=== PATIENT | female | born 1950 | race African-American/Black ===

== ENCOUNTER 2020-03-01 20:25 | Inpatient (IN) ==
--- NOTE | 2020-03-01 21:25 | Diag Imaging Result Doc PS360 ---
CHEST-1 VIEW - 03/01/2020 INDICATION: SOB COMPARISON: None FINDINGS: The lungs are normally expanded and clear. Heart size and mediastinal contours are normal. No pneumothorax or pleural effusion. There is colon under the right hemidiaphragm, a normal variant. IMPRESSION: Negative exam. Electronically signed by Osvaldo Garces 03/01/2020 9:23 PM
[2020-03-01 21:33] LABS: BASO# 0.15 X1000 (0.0-0.2); BASO% 3.2 % (0.0-0.8); EOS# 0.05 X1000 (0.0-0.7); EOS% 1.1 % (0.0-10.0); HEMATOCRIT 36.6 % (37.0-47.0); HEMOGLOBIN 11.9 g/dL (12.0-16.0); IMM GRAN# 0.05 X1000 (0.0-0.04); IMM GRAN% 1.1 % (0.0-0.5); LYMPH% 46.7 % (20.5-51.1); MCH 31.2 PG (27-31); MCHC 32.5 g/dL (33-37); MCV 95.8 FL (81-99); MONO# 0.59 X1000 (0.11-0.59); MONO% 12.5 % (1.7-9.3); MPV 10.1 FL (7.4-10.4); NEUT# 1.67 X1000 (1.4-6.5); NEUT% 35.4 % (42.2-75.2); PLT 292 X1000 (130-400); RBC 3.82 XMIL (4.2-5.4); RDW 11.5 % (11.5-14.5); WBC 4.71 X1000 (4.8-10.8)
[2020-03-01 21:59] LABS: ALB/GLOB RATIO 1.3; ALBUMIN 3.7 g/dL (3.5-5.0); CALCIUM 8.9 mg/dL (8.8-10.2); CREATININE 1.5 mg/dL (0.5-0.9); POTASSIUM 4.6 mmol/L (3.5-5.1); TOTAL BILIRUBIN 0.41 mg/dL (0.20-1.00); TOTAL PROTEIN 6.6 g/dL (6.3-8.3)
--- NOTE | 2020-03-02 00:19 | PROVIDER DOCUMENTATION ---
This chart was entered by Jessica Sheikh Scribe, acting as scribe for Kristine Casey MD. HPI-Respiratory General - General Stated Complaint: covid + low sat Time Seen by Provider: 03/01/20 20:28 Source: patient, EMS, other ([facility] employee) Allergies/Adverse Reactions: Patient Allergies Allergy/AdvReac Type Severity Reaction Status Date / Time No Known Allergies Allergy Verified 03/01/20 20:30 Home Medications: Home Medication List Medication Instructions Recorded Confirmed Last Taken Type Acetaminophen 650 mg PO DIRECTED 03/01/20 03/01/20 03/01/20 History Allopurinol 100 mg PO DAILY 03/01/20 03/01/20 03/01/20 History Benztropine [Cogentin] 0.5 mg PO BID 03/01/20 03/01/20 03/01/20 History Calcium Polycarbophil [Fiber-Lax] 625 mg PO DIRECTED 03/01/20 03/01/20 02/29/20 History Carvedilol 6.25 mg PO BID 03/01/20 03/01/20 03/01/20 History Cetirizine [Zyrtec] 10 mg PO DAILY 03/01/20 03/01/20 03/01/20 History Docusate Sodium [Colace] 100 mg PO BID PRN 03/01/20 03/01/20 Unknown History Hydrochlorothiazide 12.5 mg PO DAILY 03/01/20 03/01/20 03/01/20 History Linaclotide [Linzess] 145 mcg PO DAILY 03/01/20 03/01/20 03/01/20 History Lisinopril 2.5 mg PO DAILY 03/01/20 03/01/20 03/01/20 History Loperamide HCl [Imodium A-D] 2 mg PO DIRECTED 03/01/20 03/01/20 02/29/20 History Lorazepam [Ativan] 1 mg PO TID 03/01/20 03/01/20 03/01/20 History Loxapine [Loxitane] 25 mg PO BID 03/01/20 03/01/20 03/01/20 History Loxapine [Loxitane] 50 mg PO QHS 03/01/20 03/01/20 02/29/20 History Multivitamin,Therapeutic 1 ea PO DAILY 03/01/20 03/01/20 03/01/20 History [Thera-Tabs] Neomycin/Bacitracin/Polymyxinb 1 ea TOPICAL DIRECTED 03/01/20 03/01/20 Unknown History [Triple Antibiotic Ointment] Olanzapine [Zyprexa] 15 mg PO TID 03/01/20 03/01/20 03/01/20 History Polyethylene Glycol 3350 [Miralax] 17 gm PO DIRECTED 03/01/20 03/01/20 Unknown History Sennosides/Docusate Sodium 1 tab PO DAILY 03/01/20 03/01/20 03/01/20 History [Senexon-S 50-8.6 mg Tablet] - History of Present Illness-Resp Nature of Presenting Problem: 70 y/o female with mental handicap presents to the ED with low O2 sat and positive Covid 19. retirement staff called and stated the patient was transferred to them from a [facility] facility and tested for Covid on Wednesday with positive results called to them yesterday. They stated she had been doing well with only a slight cough and O2 sat 98-99 percent until today when O2 sat dropped to 79 percent. The patient denies all symptoms and pain. Onset/Duration: reports: unsure Timing: reports: still present Context: reports: other (Covid-19 positive) Cough Quality/Degree: reports: mild Episode Frequency: no prior episodes Current Respiratory Medication Therapy: Initiated see nurses note Similar Symptoms Previously?: No Recently seen or treated by another doctor?: No Review of Systems - Adult - REVIEW OF SYSTEMS - ADULT ROS:: limited per condition (The patient is mentally handicapped) Constitutional: denies: chills, fever, weight loss Eyes: reports: no symptoms reported Ears, Nose, Mouth & Throat: reports: no symptoms reported Cardiovascular: denies: chest pain, palpitations, syncope Respiratory: reports: cough. denies: hemoptysis, shortness of breath Gastrointestinal: reports: no symptoms reported Genitourinary: reports: no symptoms reported Musculoskeletal: reports: no symptoms reported Integumentary: reports: no symptoms reported Neurological: reports: no symptoms reported Psychiatric: reports: no symptoms reported Endocrine: reports: no symptoms reported Hematologic/Lymphatic: reports: no symptoms reported Allergic/Immunologic: reports: no symptoms reported All Other Systems: Reviewed and Negative Past History - Adult - PAST MEDICAL HISTORY-ADULT Review of Records: reports: Nursing Assessment Review, Medications Reviewed - IMMUNIZATION STATUS Childhood Immunizations: See Nurse Assessment Flu Vaccine: See Nurse Assessment - SOCIAL HISTORY Living Situation: group Physical Exam-General - PHYSICAL EXAM-ADULT Initial Vital Signs Reviewed: Yes - CONSTITUTIONAL General Appearance: alert, no apparent distress, obese, other (97% on room air) - EYES Eyes: PERRL/EOMI - HEAD, EARS, NOSE, MOUTH & THROAT HENMT: normocephalic/atraumatic, moist mucous membranes - NECK Neck: full range of motion, supple - RESPIRATORY Respiratory: decreased breath sounds. negative: rales, rhonchi, wheezing - CARDIOVASCULAR Cardiovascular: regular rate, rhythm - GASTROINTESTINAL (ABDOMEN) Abdominal Exam: non tender, soft. negative: distended, guarding, rebound - SKIN Integumentary: normal color, warm/dry - NEUROLOGIC Neurologic: grossly normal Progress - PLAN OF CARE/RESULTS Progress/Plan/Lab Results: Vital Signs - 8 hr 03/01/20 21:12 03/01/20 22:59 Temperature 98.6 F Pulse Rate 87 69 Respiratory Rate 19 21 Blood Pressure 117/88 102/67 O2 Sat by Pulse Oximetry 96 98 03/01/20 23:00 Respiratory Syncytial Virus Ag Scrn - Final Nasopharyngeal 03/01/20 23:00 Influenza Screen - Final Nasopharyngeal Laboratory Results - last 24 hr 03/01/20 03/01/20 03/01/20 20:55 20:55 20:55 WBC RBC Hgb Hct MCV MCH MCHC RDW Std Deviation Plt Count MPV Immature Gran % (Auto) Neut % (Auto) Lymph % (Auto) Knott % (Auto) Eos % (Auto) Baso % (Auto) Immature Gran # (Auto) Neut # (Auto) Lymph # (Auto) Knott # (Auto) Eos # (Auto) Baso # (Auto) Segmented Neutrophils D-Dimer, Quantitative 1.04 H Sodium Potassium Chloride Carbon Dioxide Anion Gap BUN Creatinine Estimated GFR/1.73 m2 BUN/Creatinine Ratio Glucose Calculated Osmolality Calcium Ferritin 1513 H Total Bilirubin AST ALT Alkaline Phosphatase Lactate Dehydrogenase Troponin T High Sens C-React Prot High Sens 7.960 Bqb-N-Cfvbznzfofl Pept Total Protein Albumin Globulin Albumin/Globulin Ratio 03/01/20 03/01/20 03/01/20 20:55 20:55 20:55 WBC RBC Hgb Hct MCV MCH MCHC RDW Std Deviation Plt Count MPV Immature Gran % (Auto) Neut % (Auto) Lymph % (Auto) Knott % (Auto) Eos % (Auto) Baso % (Auto) Immature Gran # (Auto) Neut # (Auto) Lymph # (Auto) Knott # (Auto) Eos # (Auto) Baso # (Auto) Segmented Neutrophils D-Dimer, Quantitative Sodium 145 Potassium 4.6 Chloride 107 Carbon Dioxide 25 Anion Gap 13 BUN 29 H Creatinine 1.5 H Estimated GFR/1.73 m2 34 BUN/Creatinine Ratio 19 Glucose 98 Calculated Osmolality 295 Calcium 8.9 Ferritin Total Bilirubin 0.41 AST 45 H ALT 44 H Alkaline Phosphatase 97 Lactate Dehydrogenase 263 H Troponin T High Sens 16 C-React Prot High Sens Zor-B-Lnxbglzahja Pept 86 Total Protein 6.6 Albumin 3.7 Globulin 2.9 Albumin/Globulin Ratio 1.3 03/01/20 20:55 WBC 4.71 L RBC 3.82 L Hgb 11.9 L Hct 36.6 L MCV 95.8 MCH 31.2 H MCHC 32.5 L RDW Std Deviation 11.5 Plt Count 292 MPV 10.1 Immature Gran % (Auto) 1.1 H Neut % (Auto) 35.4 L Lymph % (Auto) 46.7 Knott % (Auto) 12.5 H Eos % (Auto) 1.1 Baso % (Auto) 3.2 H Immature Gran # (Auto) 0.05 H Neut # (Auto) 1.67 Lymph # (Auto) 2.20 Knott # (Auto) 0.59 Eos # (Auto) 0.05 Baso # (Auto) 0.15 Segmented Neutrophils Not Reportable D-Dimer, Quantitative Sodium Potassium Chloride Carbon Dioxide Anion Gap BUN Creatinine Estimated GFR/1.73 m2 BUN/Creatinine Ratio Glucose Calculated Osmolality Calcium Ferritin Total Bilirubin AST ALT Alkaline Phosphatase Lactate Dehydrogenase Troponin T High Sens C-React Prot High Sens Vdp-C-Oohprcdzhmn Pept Total Protein Albumin Globulin Albumin/Globulin Ratio Orders Category Date Time Status CHEST-1 VIEW [RAD] Stat Exams 03/01/20 20:00 Completed CBC WITH ELECTRONIC DIFF [HEME] Stat Lab 03/01/20 20:55 Completed COMPREHENSIVE METABOLIC PANEL [CHEM] Stat Lab 03/01/20 20:55 Completed CRP HIGH SENSITIVITY Stat Lab 03/01/20 20:55 Completed D-DIMER [COAG] Stat Lab 03/01/20 20:55 Completed FERRITIN Stat Lab 03/01/20 20:55 Completed INFLUENZA SCREEN A/B Stat Lab 03/01/20 23:00 Completed LDH [CHEM] Stat Lab 03/01/20 20:55 Completed PRO B-NATRIURETIC PEPTIDE Stat Lab 03/01/20 20:55 Completed RSV [RESPIRATORY SYNCYTIAL VIRUS] Stat Lab 03/01/20 23:00 Completed TROPONIN T HIGH SENSITIVITY Stat Lab 03/01/20 20:55 Completed Result Diagrams: 03/01/20 20:55 03/01/20 20:55 - XRAY 1 XRAY Study: Chest Impression: Normal (CHEST-1 VIEW - 03/01/2020 INDICATION: SOB COMPARISON: None FINDINGS: The lungs are normally expanded and clear. Heart size and mediastinal contours are normal. No pneumothorax or pleural effusion. There is colon under the right hemidiaphragm, a normal variant. IMPRESSION: Negative exam. Electronically signed by Osvaldo Garces 03/01/2020 9:23 PM) - CONSULTS/PCP/HOSPITALIST Notification #1 *Consult/PCP/Hospitalist*: Dr. Medellin paged at [phone] Time Discussed: 23:46 Reason/Comments: Covid 19 +, Elevated D-dimer, abnormal WBC Consult Disposition: Admit Departure - Departure Date of Disposition Decision: 03/01/20 Time of Disposition Decision: 23:45 DIAGNOSIS: COVID-19 virus detected, Hypoxemia, Intellectual disability Disposition: ADMITTED INPATIENT 09 Certified Medical Emergency: Urgent Condition: Stable Referrals and Follow-Ups: None,PCP [Primary Care Provider] - - Critical Care Note This patient required my direct & personal management of CC.: No Attestation - Physician/ DONAVON Attestation Patient care was provided by Advanced Practice Provider:: No The physician spent face to face time with patient:: Yes Advanced Practice Provider documentation review:: Supervising physician onsite and consulted in the evaluation and care of this patient. The physician did have a face to face encounter with the patient. This chart was documented by the indicated scribe, (Jessica Sheikh, Mamadou) and accurately reflects the services I performed and decisions made by me, Kristine Casey MD, as attested by the provider's signature.
[2020-03-02] MEDS ORDERED: ZOFRAN IV PRN (06:25)
[2020-03-02] MEDS ORDERED: TYLENOL PO PRN (06:25)
[2020-03-02] MEDS ORDERED: NS 1,000 ML IV SCH (06:30)
[2020-03-02] MEDS ORDERED: VENTOLIN HFA INH PRN (06:30)
[2020-03-02 06:49] LABS: URINE SOURCE CLEAN CATCH
--- NOTE | 2020-03-02 07:04 | HISTORY AND PHYSICAL ---
CHIEF COMPLAINT: Desaturation to the 80s. HISTORY OF PRESENTING COMPLAINT: Patient is a 70-year-old who lives in a [facility], whose COVID-19 results came back positive today. In the [facility], patient was found to be desaturating into the 80s, although when EMS got to the site, pulse oximeter was normal on room air, in the 90s, but due to the history of desaturation to the 80s patient was brought to the ER. In the ER, the patient did not require any oxygen intervention, was saturating well on room air consistently above 92%. Given the patient's age and additional risk factors of being in a [facility] and more exposures to people in the [facility], the patient was admitted for observation to ascertain that patient does not desaturate and can be discharged back. Of note, patient has not been febrile while in the hospital here. I agree with documentation by the nurse practitioner, and the plan will be to observe patient. If patient's oxygenation remains stable on room air over the next 24 hours, the plan is to consider discharge to home where she can self isolate. The patient has no additional clinical benefit to being in the hospital if her vitals and oxygen saturation remains stable. Full H and P is dictated by the nurse practitioner. [facility]
[2020-03-02 07:17] LABS: BILIRUBIN URINE NEGATIVE (NEGATIVE); BLOOD URINE NEGATIVE (NEGATIVE); COLOR YELLOW; GLUCOSE URINE NEGATIVE (NEGATIVE); KETONE URINE TRACE mg/dL (NEGATIVE); LEUKOCYTES URINE NEGATIVE (NEGATIVE); NITRITE URINE NEGATIVE (NEGATIVE); PROTEIN URINE TRACE mg/dL (NEGATIVE); SP GRAVITY URINE 1.018; TURBIDITY URINE CLEAR (CLEAR); UROBILINOGEN URINE 2 mg/dL (NORMAL)
[2020-03-02 07:18] LABS: UR EPITHELIAL CELLS <10 /HPF (<10); URINE BACTERIA NEGATIVE /HPF; URINE RBC <10 /HPF (<10); URINE WBC <10 /HPF (<10)
[2020-03-02] MEDS ORDERED: HEPARIN SUBQ SCH (09:00)
[2020-03-02 10:05] LABS: BASO# 0.21 X1000 (0.0-0.2); BASO% 3.9 % (0.0-0.8); EOS# 0.05 X1000 (0.0-0.7); EOS% 0.9 % (0.0-10.0); HEMATOCRIT 34.9 % (37.0-47.0); HEMOGLOBIN 11.5 g/dL (12.0-16.0); IMM GRAN# 0.04 X1000 (0.0-0.04); IMM GRAN% 0.7 % (0.0-0.5); LYMPH# 1.97 X1000 (1.2-3.4); LYMPH% 36.1 % (20.5-51.1); MCH 31.2 PG (27-31); MCV 94.6 FL (81-99); MONO# 0.48 X1000 (0.11-0.59); MONO% 8.8 % (1.7-9.3); MPV 9.5 FL (7.4-10.4); NEUT% 49.6 % (42.2-75.2); PLT 294 X1000 (130-400); RBC 3.69 XMIL (4.2-5.4); RDW 11.3 % (11.5-14.5); WBC 5.45 X1000 (4.8-10.8)
[2020-03-02 10:17] LABS: INR 1.02; PROTIME 13.5 Seconds (11.0-16.0)
[2020-03-02 10:26] LABS: ALB/GLOB RATIO 1.3; ALBUMIN 3.7 g/dL (3.5-5.0); CALCIUM 9.4 mg/dL (8.8-10.2); CREATININE 1.2 mg/dL (0.5-0.9); POTASSIUM 3.8 mmol/L (3.5-5.1); TOTAL BILIRUBIN 0.51 mg/dL (0.20-1.00); TOTAL PROTEIN 6.6 g/dL (6.3-8.3)
[2020-03-02 10:39] LABS: ANISOCYTOSIS 1+; BASO 3 % (0-1); LYMPHS 34 % (21-51); MONO 9 % (1-9); POLYCHROM 1+; SEGS 52 % (42-75)
--- NOTE | 2020-03-02 11:26 | HISTORY AND PHYSICAL ---
PRIMARY CARE PROVIDER: I believe is Dr. Dc Kelley. This is a physician that is listed on the patient's medication administration record from her custodial. CHIEF COMPLAINT: Hypoxia and shortness of breath. HISTORY OF PRESENT ILLNESS: Ms. Antonio is a 70-year-old female who unfortunately we do not have a lot of information related to her past medical history and due the patient has intellectual disability, she is a poor historian. From what I have gathered from report from the ER staff is that the patient was recently in a facility in [place] and was transferred to a custodial with [facility] in [facility]. This did occur just recently in the last few days from what I understand. Previously, the patient was tested for COVID-19 at the facility in [place] and then was transferred up here. Since her arrival here at the facility in [facility], they were notified that her COVID-19 test was positive. According to EMS, staff reported today that the patient complained of shortness of breath and dizziness, though she has denied this since her arrival here. Staff at the custodial reported that her oxygen saturation was in the high 70s and low 80s, though upon EMS arrival, they reported that she was maintaining oxygen saturations in the 90s on room air. Since her arrival in the ER here, she has not required any oxygen supplementation. She has been on room air the entire time and has maintained oxygen saturations of 98 to 99 percent. The patient has no complaints at this time. She did report that she was hungry upon my examination. The patient was resting in bed comfortably. She was in no distress. I do not know what her baseline mentation is but at this time, the patient is alert and oriented to person only. She was able to tell me her date of month and date and that she was lying in bed, though other than this, she was not oriented to time or place, though she was able to follow simple commands. Lung sounds were clear to auscultation. Labs performed in the ER were noted to have elevated BUN and creatinine. Unfortunately, we do not have any previous labs to compare this to. She has been afebrile since arrival. She does not have any leukocytosis noted. Though given that she was noted to be hypoxic prior to arrival and was reportedly complaining of shortness of breath, the patient will be admitted for further observation of her respiratory status. REVIEW OF SYSTEMS: A 14 point review of systems was conducted with the patient and all were negative except for pertinent positives mentioned in the above HPI. PAST MEDICAL HISTORY: Unfortunately at this time, do not have much past medical history to go off of as the patient has never been at our facility before. She is not able to provide this information due to her intellectual disability and the facility she was sent from did not provide any paperwork or documents other than her medication administration record. Though looking back, it looks as though she does have a reported history of vision loss. 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 She has had a reported history of a CVA. She does take medications for hypertension and does have a known intellectual disability. PAST SURGICAL HISTORY: This is unknown at this time. We are unable to obtain this information due to the patient's current condition and mentation. SOCIAL HISTORY: It is unknown at this time whether or not the patient has any history of tobacco, alcohol or illicit drug use. Due to her condition and mentation, we were unable to obtain this information. PAST FAMILY MEDICAL HISTORY: We were unable to obtain this information due to the patient's condition and mentation. ALLERGIES: The patient's medication administration record did not note any drug allergies. She was noted to be allergic to dairy products. HOME MEDICATIONS: 1. Allopurinol 100 mg p.o. daily. 2. Zyrtec 10 mg p.o. daily. 3. Hydrochlorothiazide 12.5 mg once daily for blood pressure. 4. Linzess 145 mcg capsule, 2 capsules by mouth daily. 5. Lisinopril 2.5 mg tablet 1 tablet by mouth once daily. 6. Senna S tablet 1 tablet by mouth once daily for constipation. 7. Thera tablet 1 tablet by mouth once daily for supplementation. 8. Loxapine 50 mg capsule 1 capsule by mouth every morning and noon for psychiatric illness. 9. Lorazepam 1 mg tablet p.o. 3 times a day. 10. Olanzapine 15 mg tablet ODT dissolve 1 tab under tongue 3 times a day. 11. Cogentin 0.5 mg tablet 1 tablet by mouth twice a day. 12. Coreg 6.25 mg tablet 1 tablet by mouth twice a day. 13. Imodium A-D 2 mg tablet, take 2 tablets by mouth after 1st loose stool, then take 1 tablet by mouth after each subsequent loose stool. 14. Fiber-Lax 625 mg tablet 2 tablets by mouth every morning as needed for constipation. 15. MiraLAX 3350 powder dissolve 17 g in 8 ounces of liquid and drink by mouth once daily as needed for constipation. 16. Colace 100 mg capsule 1 capsule by mouth twice a day as needed for constipation. DIAGNOSTIC DATA/LABORATORY RESULTS: White blood cell count is 4710, hemoglobin 11.9, hematocrit is 36.6, platelet count is 292,000. D-dimer 1.04. Sodium 145, potassium 4.6, chloride 107, serum bicarb 25, BUN 29, creatinine 1.5 with a GFR of 34, glucose 98, calcium 8.9. Liver function tests are within normal limits except for AST is elevated at 45, ALT is elevated at 44. C-reactive protein was 7.960. Troponin T high-sensitivity was 16. ProBNP was 86. Urinalysis was obtained via clean catch, was positive for trace protein, ketones though was negative for blood, nitrites, leukocytes, white blood cells, or bacteria. Chest x-ray showed the lungs are normally expanded and clear. The heart size and mediastinal contours are normal. There was no pneumothorax or pleural effusion noted. There was colon noted to be under the right hemidiaphragm, which is a normal variant. This is per Radiology. PHYSICAL EXAMINATION: VITAL SIGNS: Temperature 97.7 degrees, heart rate 84, respirations 21, blood pressure is 126/88 with a MAP 95, oxygen saturation is 98% on room air. GENERAL: Ms. Antonio is a pleasant, 70-year-old female. She was resting in the ER stretcher. She was in no acute distress. She was resting with her eyes closed upon my initial arrival to the room, though simply by turning on the light and calling her name, the patient did awaken easily. Once awakened, she was alert and oriented to person only. HEENT: The patient's head is atraumatic though the patient does appear to have left eye deformity, though this does not appear to be acute or new. She does have noted vision loss [place], though states that she can see out of her right eye. Right pupil is round and reactive to light, it was approximately 3 mm. Oral mucosa is moist. NECK: Supple. Trachea midline. CARDIOVASCULAR: Patient has S1, S2 present. No murmurs, gallops, rubs appreciated. Regular rate and rhythm. PULMONARY: Lung sounds are clear to auscultation in bilateral full howe. ABDOMEN: Soft, does appear to be distended though the patient does have a protuberant abdomen noted. She was nontender upon palpation. Bowel sounds were present in all 4 quadrants, were normoactive. EXTREMITIES: No cyanosis or edema noted. Pulse, motor, and sensory were intact in all extremities. Radial and pedal pulses were 2+ bilaterally. INTEGUMENTARY: The patient's skin color is normal for her race, is dry and intact. NEUROLOGICAL: Patient is alert and oriented to person only. She was able to tell me that she was lying in the bed and was able to tell me her date of , month and date, though not the year. Other than this, she was not oriented to time, place, or situation. She is able to move all extremities. Unfortunately, since we do not have much history to go off of, I do not know her baseline mentation. ASSESSMENT AND PLAN: 1. Hypoxia. This does seem to be resolved. The patient was reportedly complaining of shortness of breath and dizziness. Upon checking her oxygen saturation at the custodial, they noted it to be in the high 70s and low 80s, though upon EMS arrival, they reported that she was maintaining oxygen saturations in the 90s without oxygen supplementation and since she has arrived in the ER, she has not required any further oxygen supplementation either. She is 98 to 99 percent on room air. We will continue to monitor this closely. We have placed p.r.n. orders for oxygen supplementation as needed. 2. Recent diagnosis with a Coronavirus Disease 2018. The patient reportedly was tested at a facility in [place] prior to her transfer to the custodial here I believe in [facility]. She reportedly received this positive test result yesterday. The patient has been placed on isolation precautions. We have placed orders for the patient to have medical records sent from her custodial here so we can confirm her past medical history as well as her COVID-19 test result. Given that the patient has already been tested and does have a positive result, we did not retest her at this time. We will leave further decision-making on this to the attending physician. The patient this time is not having any respiratory compromise. She was lying back in the bed with the head of the bed elevated at approximately 30 degrees. She was in no respiratory distress. She does not have any accessory muscle use. She is able to speak in full sentences. Her oxygen saturation on room air was 99%. Her chest x-ray was negative for any acute abnormalities. She does not have any leukocytosis and has not had any fever since her arrival. We will continue to monitor. 3. Acute kidney injury. I am uncertain whether or not the patient does have underlying chronic kidney disease since we have no labs to go off of. We will go ahead and place her with a very gentle infusion of normal saline at 60 mL/hour. We will continue to monitor this closely. We will avoid nephrotoxic medications and renally dose medicines as necessary. 4. Deep vein thrombosis prophylaxis will be provided with heparin 5000 units subcutaneously q.12 hours. 5. History of reported intellectual disability. The patient has been placed on the medical floor with telemetry. She will have vital signs q.4 hours. We will do strict intake and output. We will repeat a CBC, CMP in the morning. I have placed User Acceptance Tester and Case Management consult as well. She will be on a heart healthy diet. Further orders and recommendations pending hospital course, diagnostic studies, and physician evaluation. Dictated by REBEKAH Can for Du Gomez MD
[2020-03-02 16:33] VITALS: BP 107/64
--- NOTE | 2020-03-02 20:21 | DISCHARGE SUMMARY ---
ADMISSION DATE: 03/02/2020 DISCHARGE DATE: 03/02/2020 DISCHARGE DIAGNOSIS: 1. Apparent episode of hypoxia at the longterm, resolved. 2. Recent diagnosis Coronavirus 2019. 3. Kidney dysfunction, not sure if this is acute or chronic. 4. History of reported intellectual disability. PROCEDURES PERFORMED: Chest x-ray dated 03/01/2020. Impression: Negative exam, the lungs are normally expanded and clear, heart size and mediastinal contours are normal, no pneumothorax or pleural effusion. There is colon under the right cher diaphragm, a normal variant HOSPITAL COURSE: Ms. Antonio is a 70-year-old female with intellectual disability hence she is a poor historian, per the admitting nurse practitioner/MD. The report was taken from the ER staff. It looks like this patient was recently in a facility in [place] and was transferred to a longterm with [facility] in [facility]. This apparently happened last Wednesday, 5 days ago, and they were notified that she was tested for COVID 19 and actually was positive, I contacted the longterm nurse Mrs. Diane Berry at and apparently she was having some low-grade temperature between Wednesday and , the highest that she had at the longterm was 100.6. As per Mrs. Berry, she was in a longterm at [place], but the personnel actually quit because they were scared about these infections that has been going on there so they needed to emergently transfer this patient to this longterm but apparently she is going back to [place] in a few day. That is the reason why she ended up here in this longterm. This patient actually is basically at her baseline. No fever at all. No chills. Vital signs are stable. She is eating and x-rays normal as well as the oxygen saturation at room air. I communicated with Mrs. Berry and I told her that this patient can be discharged because she seems to be stable and she agree with that. We had a large conversation about how to take care of this patient over there and she states that they have some material and protection to cover themselves and they are disposable material. This patient will be discharged and she will be isolated and she understands that. I told Ms. danish Berry that I will stop the hydrochlorothiazide and the lisinopril for 2 reasons. One is that the blood pressure has been fine without any blood pressure medication and the 2nd is that she has some kidney dysfunction, which is better compared to yesterday because we stop this treatment. I also told Mrs. Berry that probably she will need to be on dose treat though that treatment again in the future but not at this point. She will need to be isolated for at least 14 days. This has been explained in detail to Mrs. Berry which is the nurse of that facility. PHYSICAL EXAMINATION: Vital Signs: Temperature 97.9 degrees, pulse respiratory rate 16, blood pressure 107/64. Oxygen saturation 95% on room air. General: She is not in acute distress. She was awake, alert, but she was oriented only to person. She was able to say her name, but not her last name to me. She was able to move her extremities, but she was not following commands consistently. HEENT: Head normocephalic. No trauma. Neck: Supple. Pulmonary: Lungs are clear to auscultation bilaterally. Abdomen: Soft, protuberant. Positive bowel sounds. Extremities: No edema, no clubbing, no cyanosis. Neurological: Like I mentioned before, she was oriented to person. She was able to move all 4 extremities. She has some contraction mostly at her hands. LABORATORY: WBC 5.4, hemoglobin 11.5, hematocrit 34.9, platelets 294,000. Sodium 139, potassium 3.8, chloride 104, bicarbonate 20, BUN 28, creatinine 1.2, glucose 144, calcium 9.4, bilirubin 0.5, AST 34, ALT 39, alkaline phosphatase 91, albumin 3.7. DISCHARGE MEDICATIONS: 1. Acetaminophen 650 mg p.o. as needed. 2. Allopurinol 100 mg p.o. daily. 3. Cogentin 0.5 mg p.o. b.i.d. 4. Fiber-Lax 625 mg as directed. 5. Carvedilol 6.25 mg p.o. b.i.d. 6. Zyrtec 10 mg p.o. daily. 7. Colace 100 mg p.o. b.i.d. as needed. 8. Linzess 145 mcg p.o. daily. 9. Loperamide 2 mg p.o. as needed. 10. Ativan 1 mg p.o. t.i.d. 11. Loxitane 25 mg p.o. b.i.d. and 50 mg p.o. at bedtime. 12. Thera Tab p.o. daily. 13. Triple antibiotic ointment topical as directed. 14. Olanzapine 15 mg p.o. t.i.d. 15. MiraLAX 17 g p.o. as directed. 16. Senexon S 50/8.6 mg tablet p.o. daily. DISPOSITION: The patient needs to be in isolation for 14 days at least. The person needs to take all the prevention to avoid an infection from this patient. This has been explained to Mrs. Diane Berry, and for now, I will avoid lisinopril and hydrochlorothiazide. cc: Sabino Sanchez MD
== END 2020-03-02 16:37 | disposition home or self-care (01) | DRG 179 ==
LOC: ED 20:25 → SUATTDRO 03-02 02:24 → 4N 03-02 02:24
PROVIDERS: ATTEND Internal Medicine

== ENCOUNTER 2020-03-05 11:14 | Observation (INO) ==
[2020-03-05 12:14] LABS: URINE SOURCE CATH
[2020-03-05 12:17] LABS: BASO# 0.09 X1000 (0.0-0.2); EOS# 0.07 X1000 (0.0-0.7); EOS% 0.8 % (0.0-10.0); HEMATOCRIT 37.8 % (37.0-47.0); HEMOGLOBIN 12.5 g/dL (12.0-16.0); IMM GRAN# 0.15 X1000 (0.0-0.04); IMM GRAN% 1.6 % (0.0-0.5); LYMPH% 27.9 % (20.5-51.1); MCH 31.1 PG (27-31); MCHC 33.1 g/dL (33-37); MONO# 0.94 X1000 (0.11-0.59); MONO% 10.1 % (1.7-9.3); NEUT# 5.47 X1000 (1.4-6.5); NEUT% 58.6 % (42.2-75.2); PLT 373 X1000 (130-400); RBC 4.02 XMIL (4.2-5.4); RDW 11.3 % (11.5-14.5); WBC 9.32 X1000 (4.8-10.8)
[2020-03-05 12:34] LABS: BILIRUBIN URINE NEGATIVE (NEGATIVE); BLOOD URINE LARGE (NEGATIVE); COLOR ORANGE; GLUCOSE URINE NEGATIVE (NEGATIVE); KETONE URINE NEGATIVE (NEGATIVE); LEUKOCYTES URINE LARGE (NEGATIVE); NITRITE URINE NEGATIVE (NEGATIVE); PH URINE 6.5; PROTEIN URINE 300 mg/dL (NEGATIVE); TURBIDITY URINE TURBID (CLEAR); UR EPITHELIAL CELLS <10 /HPF (<10); URINE BACTERIA 1+ /HPF; URINE RBC TNTC /HPF (<10); URINE WBC TNTC /HPF (<10); UROBILINOGEN URINE 2 mg/dL (NORMAL)
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
[2020-03-05 12:39] LABS: ALBUMIN 3.8 g/dL (3.5-5.0); CALCIUM 9.5 mg/dL (8.8-10.2); CREATININE 1.6 mg/dL (0.5-0.9); POTASSIUM 4.3 mmol/L (3.5-5.1); TOTAL BILIRUBIN 0.57 mg/dL (0.20-1.00); TOTAL PROTEIN 7.6 g/dL (6.3-8.3)
[2020-03-05 12:47] LABS: URINE CASTS NONE SEEN; URINE CRYSTALS NONE SEEN; URINE SMALL ROUND CELLS RENAL PRESENT; URINE YEAST NONE SEEN
[2020-03-05] MEDS ORDERED: ROCEPHIN 1 GM in NS 50 ML IV ONE (15:15)
[2020-03-05] MEDS ORDERED: ZOFRAN IV PRN (16:05)
[2020-03-05] MEDS ORDERED: TYLENOL PO PRN ×2 (16:05→21:00)
--- NOTE | 2020-03-05 16:47 | HISTORY AND PHYSICAL ---
PRIMARY CARE PROVIDER: Dr. Dc Kelley. CHIEF COMPLAINT: Vaginal bleeding and burning with urination. HISTORY OF PRESENT ILLNESS: Ms. Alexandra Antonio is a 70-year-old, -Polish female with a medical history of mental retardation, irritable bowel syndrome, seasonal allergies, who was most recently diagnosed with Covid-19 on February 25. She was recently here but most recently discharged on the of this month, which was just a few days ago. She is now back as there is some vaginal bleeding and a report from the ER nurse practitioner, there is some petechia upon the vaginal exam. It looks like there may be some tearing and bleeding from that area. R has since been notified. She will have a sane nurse come to visit her to fully evaluate for any kind of trauma. She is also positive for a urinary tract infection. We are testing her for pelvic inflammatory diseases or STIs, STDs. She also has acute kidney injury and we are still going to have her on droplet isolation for being Covid-19 positive. PAST MEDICAL HISTORY: 1. Anxiety. 2. Mental retardation with occasional behavioral disturbances. 3. Gout. 4. IBS. 5. Seasonal allergies. 6. Hypertension. 7. Questionable congestive heart failure. 8. Questionable history of CKD. 9. Covid-19 positive with test being on 02/26/2020. SURGICAL HISTORY: Unknown. SOCIAL HISTORY: The patient denies tobacco, alcohol, or illicit drug use. FAMILY HISTORY: Unknown. ALLERGIES: Dairy products. HOME MEDICATIONS: Have not been reconciled yet. REVIEW OF SYSTEMS: The patient denies any complaints at this time. She has a Tovar catheter in place and complaints of urinary burning or the feeling like she needs to urinate. PHYSICAL EXAMINATION: VITAL SIGNS: Temperature 98.3 degrees, heart rate 96, respiratory rate 23, blood pressure 104/73, O2 saturation 97% on room air. She is 5 feet 9 inches tall, 250 pounds, BMI is 36.9. GENERAL: Ms. Alexandra Antonio is a 70-year-old, -Polish female. She is in no acute distress. She is oriented to her name. She is requesting to get up into a wheelchair and is requesting to urinate despite having a catheter. HEENT: Atraumatic, normocephalic. Right pupil is round, reactive to light, around 3 mm. Left pupil seems to have a deformity. Mucous membranes are dry. NECK: Trachea midline. CARDIOVASCULAR: S1, S2. Regular rate and rhythm. No rubs, gallops, murmurs. No lower extremity edema. There are +2 dorsalis and radial pulses. Negative JVD or carotid bruits. PULMONARY: Clear to auscultate bilateral breath sounds. No accessory muscle use or work of breathing noted. GI: Soft, nontender, nondistended. Positive bowel sounds x4. EXTREMITIES: Moves all extremities equally. Full range of motion. NEUROLOGIC: Oriented to name. Follows commands. Sensory is intact. SKIN: Warm, dry, intact. LABORATORY DATA: White blood cells 9000, hemoglobin 12, hematocrit 37, platelet count 373,000. Sodium 139, potassium 4.3, BUN 33, creatinine is 1.6, glucose 152, calcium 9.5. Bilirubin 0.57, AST 27, ALT 33, albumin 3.8, lactate 1.2. Urinalysis, 300 protein, large blood, 2 urobilinogen, large leukocytes, too numerous to count white blood cells, too numerous to count red blood cells, 1+ bacteria. IMAGING: None on this admission. ASSESSMENT AND PLAN: 1. Urinary tract infection. We will start her on Rocephin and give her intravenous fluid hydration. 2. Covid-19 positive on February 25. Continue with droplet isolation. Currently, she is asymptomatic and afebrile. 3. Vaginal discharge with questionable vaginal trauma. Department [employer] has been notified. Vaginal exam performed by REBEKAH in the emergency department. Please see those notes. The page hospitale nurse will also evaluate the patient as well and will test and rule out for sexually transmitted diseases or sexually transmitted infections. 4. Mental retardation with occasional behavioral disturbances. It looks like she is on a few medications for this. Once they are verified, we can get those resumed. 5. Irritable bowel syndrome. We will resume those medications once they are reconciled. 6. Seasonal allergies. 7. Gout. Again, waiting for home medications. 8. Questionable congestive heart failure. She is on Coreg. There is no old echocardiogram to evaluate heart function. There are no signs or symptoms of heart failure at this time. 9. Acute kidney injury on questionable chronic kidney disease, kidney dysfunction. We are going to give some intravenous fluid hydration and hold nephrotoxic medications. 10. Deep venous thrombosis prophylaxis. Sequential compression devices. Dictated by REBEKAH Hughes for Shankar Helton MD cc: REBEKAH Hughes MD
[2020-03-05] MEDS: NS 1,000 ML IV SCH (20:09)
[2020-03-05] MEDS ORDERED: FIBERCON PO PRN (20:56)
[2020-03-05] MEDS ORDERED: IMODIUM PO PRN (20:56)
[2020-03-05] MEDS ORDERED: COLACE PO PRN (20:56)
[2020-03-05] MEDS ORDERED: LOXITANE PO SCH (21:00)
[2020-03-05] MEDS ORDERED: COGENTIN PO SCH (21:00)
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
[2020-03-05] MEDS: LOXITANE PO SCH (23:14)
[2020-03-05] MEDS: COREG PO SCH (23:29)
[2020-03-06] MEDS: ZYPREXA ZYDIS PO SCH ×6 (05:45→20:03)
[2020-03-06] MEDS: LOXITANE PO SCH ×4 (06:58→20:04)
[2020-03-06] MEDS: NS 1,000 ML IV SCH ×2 (06:58→20:03)
[2020-03-06] MEDS ORDERED: LISINOPRIL PO SCH (09:00)
[2020-03-06] MEDS ORDERED: HYDROCHLOROTHIAZIDE PO SCH (09:00)
[2020-03-06] MEDS ORDERED: ZYLOPRIM PO SCH (09:00)
[2020-03-06 09:59] LABS: ALB/GLOB RATIO 1.3; ALBUMIN 4.4 g/dL (3.5-5.0); CALCIUM 9.9 mg/dL (8.8-10.2); CREATININE 1.4 mg/dL (0.5-0.9); POTASSIUM 4.2 mmol/L (3.5-5.1); TOTAL BILIRUBIN 0.57 mg/dL (0.20-1.00); TOTAL PROTEIN 7.8 g/dL (6.3-8.3)
[2020-03-06 10:25] LABS: BASO# 0.17 X1000 (0.0-0.2); BASO% 1.5 % (0.0-0.8); EOS# 0.11 X1000 (0.0-0.7); HEMATOCRIT 39.7 % (37.0-47.0); HEMOGLOBIN 13.2 g/dL (12.0-16.0); IMM GRAN# 0.15 X1000 (0.0-0.04); IMM GRAN% 1.3 % (0.0-0.5); LYMPH# 3.42 X1000 (1.2-3.4); LYMPH% 30.5 % (20.5-51.1); MCHC 33.2 g/dL (33-37); MCV 93.2 FL (81-99); MONO# 1.02 X1000 (0.11-0.59); MONO% 9.1 % (1.7-9.3); MPV 9.8 FL (7.4-10.4); NEUT# 6.33 X1000 (1.4-6.5); NEUT% 56.6 % (42.2-75.2); PLT 410 X1000 (130-400); RBC 4.26 XMIL (4.2-5.4); RDW 11.5 % (11.5-14.5)
[2020-03-06] MEDS: COREG PO SCH ×2 (10:31→20:03)
[2020-03-06] MEDS: THERA M PLUS PO SCH (10:31)
[2020-03-06] MEDS: ROCEPHIN 1 GM in NS 50 ML IV SCH (10:31)
[2020-03-06] MEDS: ZYRTEC PO SCH (10:31)
[2020-03-06] MEDS: PERICOLACE PO SCH (10:31)
[2020-03-06] MEDS: LINZESS PO SCH (10:33)
[2020-03-06] MEDS: ATIVAN PO SCH ×3 (10:33→20:04)
[2020-03-06] MEDS ORDERED: NEOSPORIN OINTMENT PACKET TOP SCH (10:45)
[2020-03-06 10:49] LABS: BANDS 3 % (0-1); EOS 2 % (1-10); LYMPHS 25 % (21-51); MONO 10 % (1-9); SEGS 54 % (42-75)
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
[2020-03-06] MEDS: COGENTIN PO SCH (20:03)
[2020-03-07] MEDS: ZYPREXA ZYDIS PO SCH ×4 (05:34→22:52)
[2020-03-07] MEDS: LOXITANE PO SCH ×4 (05:34→22:51)
[2020-03-07 05:41] LABS: BASO% 0.9 % (0.0-0.8); EOS% 0.9 % (0.0-10.0); HEMATOCRIT 34.2 % (37.0-47.0); HEMOGLOBIN 11.3 g/dL (12.0-16.0); IMM GRAN% 1.9 % (0.0-0.5); LYMPH# 3.36 X1000 (1.2-3.4); LYMPH% 31.5 % (20.5-51.1); MCH 31.3 PG (27-31); MCV 94.7 FL (81-99); MONO% 12.2 % (1.7-9.3); MPV 9.5 FL (7.4-10.4); NEUT# 5.61 X1000 (1.4-6.5); NEUT% 52.6 % (42.2-75.2); PLT 333 X1000 (130-400); RBC 3.61 XMIL (4.2-5.4); RDW 11.4 % (11.5-14.5); WBC 10.67 X1000 (4.8-10.8)
[2020-03-07 06:28] LABS: ALB/GLOB RATIO 1.2; ALBUMIN 3.4 g/dL (3.5-5.0); CALCIUM 8.9 mg/dL (8.8-10.2); CREATININE 1.3 mg/dL (0.5-0.9); MAGNESIUM 1.8 mg/dL (1.5-2.7); TOTAL BILIRUBIN 0.31 mg/dL (0.20-1.00); TOTAL PROTEIN 6.2 g/dL (6.3-8.3)
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
[2020-03-07] MEDS: NS 1,000 ML IV SCH ×2 (11:11→22:56)
[2020-03-07] MEDS: COREG PO SCH ×2 (11:12→22:56)
[2020-03-07] MEDS: PERICOLACE PO SCH (11:12)
[2020-03-07] MEDS: ROCEPHIN 1 GM in NS 50 ML IV SCH (11:12)
[2020-03-07] MEDS: COGENTIN PO SCH ×2 (11:12→22:51)
[2020-03-07] MEDS: THERA M PLUS PO SCH (11:12)
[2020-03-07] MEDS: ATIVAN PO SCH ×3 (11:13→22:51)
[2020-03-07] MEDS: ZYRTEC PO SCH (11:13)
[2020-03-07] MEDS: LINZESS PO SCH (11:14)
[2020-03-08] MEDS: ZYPREXA ZYDIS PO SCH ×2 (06:14→11:39)
[2020-03-08] MEDS: LOXITANE PO SCH ×2 (06:15→11:39)
[2020-03-08 07:33] VITALS: BP 136/84
[2020-03-08] MEDS: ATIVAN PO SCH ×2 (08:43→12:21)
[2020-03-08] MEDS: PERICOLACE PO SCH (08:43)
[2020-03-08] MEDS: THERA M PLUS PO SCH (08:43)
[2020-03-08] MEDS: COGENTIN PO SCH (08:43)
[2020-03-08] MEDS: LINZESS PO SCH (08:43)
[2020-03-08] MEDS: COREG PO SCH (08:48)
[2020-03-08] MEDS: ZYRTEC PO SCH (08:48)
[2020-03-08 09:09] LABS: BASO# 0.13 X1000 (0.0-0.2); BASO% 1.5 % (0.0-0.8); EOS# 0.14 X1000 (0.0-0.7); EOS% 1.6 % (0.0-10.0); HEMATOCRIT 39.4 % (37.0-47.0); HEMOGLOBIN 12.9 g/dL (12.0-16.0); IMM GRAN# 0.18 X1000 (0.0-0.04); IMM GRAN% 2.1 % (0.0-0.5); LYMPH# 3.17 X1000 (1.2-3.4); LYMPH% 36.9 % (20.5-51.1); MCH 31.1 PG (27-31); MCHC 32.7 g/dL (33-37); MCV 94.9 FL (81-99); MONO# 0.75 X1000 (0.11-0.59); MONO% 8.7 % (1.7-9.3); MPV 9.4 FL (7.4-10.4); NEUT# 4.23 X1000 (1.4-6.5); NEUT% 49.2 % (42.2-75.2); PLT 341 X1000 (130-400); RBC 4.15 XMIL (4.2-5.4); RDW 11.6 % (11.5-14.5)
[2020-03-08 09:42] LABS: ALB/GLOB RATIO 0.8; ALBUMIN 3.4 g/dL (3.5-5.0); CALCIUM 9.7 mg/dL (8.8-10.2); CREATININE 1.1 mg/dL (0.5-0.9); MAGNESIUM 1.9 mg/dL (1.5-2.7); POTASSIUM 4.4 mmol/L (3.5-5.1); TOTAL BILIRUBIN 0.37 mg/dL (0.20-1.00); TOTAL PROTEIN 7.7 g/dL (6.3-8.3)
--- NOTE | 2020-03-08 10:03 | DISCHARGE SUMMARY ---
ADMISSION DATE: 03/05/2020 DISCHARGE DATE: 03/08/2020 HOSPITAL COURSE: Her doctor is Dr. torres Kelley. She had some vaginal bleeding and burning with urination. Ms. Antonio is a Jessica 70-year-old black female with medical history of mental retardation, irritable bowel syndrome, seasonal allergies, who was most recently diagnosed with COVID-19 on February 25. Her positive test recently here, but most recently discharged the 4th of this month. She is now back with some vaginal bleeding. Report from ER nurse practitioner is she had some petechiae and vaginal exam. It looks like there may be some bleeding from that area. DHR has been notified and been evaluated. The patient was treating her for pelvic inflammatory disease. She has done well, still a little bit of spotting. PAST MEDICAL HISTORY: Reviewed again: 1. Anxiety. 2. Mental retardation. Occasional behavior disturbances. 3. Gout. 4. Irritable bowel syndrome. 5. Seasonal allergies. 6. Hypertension. 7. Questionable congestive heart failure. 8. Questionable history of chronic kidney disease. 9. She had a COVID-19 positive test back on 02/26/2020. SURGICAL HISTORY: Unknown. SOCIAL HISTORY: Denies tobacco, alcohol or illicit drugs. So presented with a urinary tract infection, was treated with Rocephin. She remained afebrile. She was COVID-19 positive February 25. She is showing no upper respiratory or lower respiratory symptoms. Vaginal discharge was suspected from possible vaginal trauma. This is resolving. Mental retardation. We continued her usual medications. History of irritable bowel, history of seasonal allergies, history of gout. Had acute kidney injury on presentation which resolved. LABORATORY DATA: Today, white count 8600, hematocrit 39, platelet count of 341,000. Electrolytes: Sodium 142, potassium 5.0, chloride 110. BUN 28, creatinine 1.3. Creatinine back to baseline, so we will let her go back to her to her alf. DISCHARGE MEDICINES: She can take Tylenol as needed, allopurinol 100 mg a day, Cogentin 0.5 mg b.i.d., FiberCon 2 tablets q.a.m. p.r.n., Coreg 6.25 mg b.i.d., Zyrtec 10 mg a day, Colace 100 mg p.o. b.i.d. p.r.n., hydrochlorothiazide 1 tablet daily, Linzess 145 mg a day, lisinopril 1 tablet p.o. daily, Imodium AD 2 tablets p.o. p.r.n., Ativan 1 mg p.o. t.i.d., Loxitane 40 mg p.o. b.i.d., loxapine 2 capsules p.o. at bedtime, multivitamin daily, Zyprexa 15 mg p.o. t.i.d., and sennoside docusate 50/8.5, 1 tablet daily. cc: Marc Bahena MD
[2020-03-08] MEDS: ROCEPHIN 1 GM in NS 50 ML IV SCH (12:22)
[2020-03-08] MEDS: NS 1,000 ML IV SCH (12:22)
== END 2020-03-08 12:30 | disposition home or self-care (01) ==
LOC: ED 11:14 → 4N 16:20 → INTOOBSV 16:20 → SUATTDRO 16:20
PROVIDERS: ATTEND Emergency Medicine